=== PATIENT | male | born 1960 | race Caucasian/White ===

== ENCOUNTER → 2017-08-18 | Outpatient (CLI) | payer OTHER ==
[~2017-08-18] MED LIST: ADVAIR 250/501 DISK IH; COMBIVENT RESPIM4 GM IH; FLONASE16 G1 BOTH NARES; GAVISCON ES CH1 EACH PO; LEVOFLOXACIN500 MG PO; LISINOPRIL/HYDROCHLO PO; MUCINEX1200 MG PO; NEXIUM40 MG PO; RHINOCORT AQUA8.6 G1 NS; ROBITUSSIN DM118 ML PO; TAMIFLU75 MG PO; TESSALON PERLE100 MG PO; TUSSIONEX PENN473 ML PO; XYZAL5 MG PO; ZESTORETIC 20-1 EAC1 PO; ZOFRAN ODT8 MG PO; ZYRTEC-D1 TABLE1 PO
== END | disposition home or self-care (01) ==
LOC: RAD 08:15
DX: J47.9 Bronchiectasis, uncomplicated (principal); T84.218D Breakdown (mechanical) of internal fixation device of other bones, subsequent encounter; R91.8 Other nonspecific abnormal finding of lung field; Z98.890 Other specified postprocedural states
CPT/HCPCS: 71250